=== PATIENT | male | born 1970 | race Caucasian/White ===

== ENCOUNTER 2019-09-08 14:53 | Outpatient (RCR) | payer MEDICARE ==
[2019-09-08] MEDS ORDERED: LIDOCAINE/PRILOCAINE 2.5-2.5% KIT ONE (15:25)
[2019-09-08] MEDS ORDERED: COLLAGENASE OINTMENT 30 GM TUBE ONE (15:25)
[2019-09-08] MEDS ORDERED: LIDOCAINE HCL 2% LOCAL 20 ML VIAL ONE (15:25)
[2019-09-08] MEDS ORDERED: SILVER SULFADIAZINE 50GM CREAM ONE (15:25)
== END 2019-09-14 ==
LOC: WCC 14:53
PROVIDERS: ATTEND Podiatrist
DX: E11.22 Type 2 diabetes mellitus with diabetic chronic kidney disease (principal); E11.621 Type 2 diabetes mellitus with foot ulcer; E11.628 Type 2 diabetes mellitus with other skin complications; L89.896 Pressure-induced deep tissue damage of other site; L97.522 Non-pressure chronic ulcer of other part of left foot with fat layer exposed; I70.203 Unspecified atherosclerosis of native arteries of extremities, bilateral legs; N18.5 Chronic kidney disease, stage 5; I10 Essential (primary) hypertension; H40.9 Unspecified glaucoma
CPT/HCPCS: 11042 ×2; 11730; 36415 ×2; 82948 ×2; 97597; 99203; 99213; J2001

== ENCOUNTER 2019-10-13 13:49 | Outpatient (RCR) | payer MEDICARE ==
[~2019-10-13 13:49] MED LIST: COLLAGENASE OINTMENT 30 GM TUBE ONE; SILVER SULFADIAZINE 50GM CREAM ONE
== END 2019-10-15 ==
LOC: WCC 13:49
PROVIDERS: ATTEND Podiatrist
DX: E11.621 Type 2 diabetes mellitus with foot ulcer (principal); E11.22 Type 2 diabetes mellitus with diabetic chronic kidney disease; E11.628 Type 2 diabetes mellitus with other skin complications; I96 Gangrene, not elsewhere classified; L89.896 Pressure-induced deep tissue damage of other site; L60.1 Onycholysis; L97.526 Non-pressure chronic ulcer of other part of left foot with bone involvement without evidence of necrosis; I70.203 Unspecified atherosclerosis of native arteries of extremities, bilateral legs; N18.5 Chronic kidney disease, stage 5; I10 Essential (primary) hypertension; G45.9 Transient cerebral ischemic attack, unspecified; H40.9 Unspecified glaucoma

== ENCOUNTER 2019-11-10 12:20 | Outpatient (RCR) | payer MEDICARE | END 2019-11-15 | LOC: WCC 12:20 | PROVIDERS: ATTEND Podiatrist | DX: E11.621 Type 2 diabetes mellitus with foot ulcer (principal); E11.22 Type 2 diabetes mellitus with diabetic chronic kidney disease; E11.628 Type 2 diabetes mellitus with other skin complications; I96 Gangrene, not elsewhere classified; L97.511 Non-pressure chronic ulcer of other part of right foot limited to breakdown of skin; L97.518 Non-pressure chronic ulcer of other part of right foot with other specified severity; L97.528 Non-pressure chronic ulcer of other part of left foot with other specified severity; S90.821A Blister (nonthermal), right foot, initial encounter; S90.822A Blister (nonthermal), left foot, initial encounter; G45.9 Transient cerebral ischemic attack, unspecified; L60.1 Onycholysis; N18.5 Chronic kidney disease, stage 5; I10 Essential (primary) hypertension; H40.9 Unspecified glaucoma; I70.203 Unspecified atherosclerosis of native arteries of extremities, bilateral legs ==

== ENCOUNTER → 2019-12-14 | Outpatient (CLI) | payer MEDICARE ==
--- NOTE | 2019-12-15 08:23 | Diagnostic Imaging Report ---
TECHNIQUE: Magnetic resonance imaging of the RIGHT foot was performed WITHOUT injected contrast. HISTORY: Right foot pain, diabetes, ulcer first and second toe COMPARISON: None available. DISCUSSION: Limited due to motion artifact and incomplete fat suppression distally. Bone marrow edema and T1 signal loss involving the phalanges of the second toe. Possible bone marrow edema of the distal phalanx of the hallux without T1 replacement. Remainder of the bone marrow signal is normal. No soft tissue abscess. IMPRESSION: Limited MRI due to motion and incomplete fat suppression. Osteomyelitis of the phalanges of the second toe. Possible osteomyelitis of the distal aspect distal phalanx first toe. Signed by: Dr. Jefry Tucker M.D. on 12/15/2019 8:20 AM
== END ==
LOC: MRI 14:41
PROVIDERS: ATTEND Podiatrist
DX: E11.621 Type 2 diabetes mellitus with foot ulcer (principal); L97.511 Non-pressure chronic ulcer of other part of right foot limited to breakdown of skin

== ENCOUNTER → 2019-12-15 | Outpatient (RCR) | payer MEDICARE ==
[~2019-12-15] MED LIST changes: +MINERAL OIL/PETROLAT/GLYCERI 6OZ BTL ONE; +MUPIROCIN 2% OINT 22 GM TUBE ONE
== END ==
LOC: EDSTATUS 11-24 14:54 → WCC 11-24 14:55
PROVIDERS: ATTEND Podiatrist
DX: E11.621 Type 2 diabetes mellitus with foot ulcer (principal); E11.628 Type 2 diabetes mellitus with other skin complications; E11.22 Type 2 diabetes mellitus with diabetic chronic kidney disease; I96 Gangrene, not elsewhere classified; L97.528 Non-pressure chronic ulcer of other part of left foot with other specified severity; L97.521 Non-pressure chronic ulcer of other part of left foot limited to breakdown of skin; L97.518 Non-pressure chronic ulcer of other part of right foot with other specified severity; L97.511 Non-pressure chronic ulcer of other part of right foot limited to breakdown of skin; S90.822A Blister (nonthermal), left foot, initial encounter; S90.821A Blister (nonthermal), right foot, initial encounter; I70.203 Unspecified atherosclerosis of native arteries of extremities, bilateral legs; N18.5 Chronic kidney disease, stage 5; I10 Essential (primary) hypertension; G45.9 Transient cerebral ischemic attack, unspecified; H40.9 Unspecified glaucoma
CPT/HCPCS: 10061; 87071; 87075; 87186; 87205

== ENCOUNTER 2020-01-12 14:32 | Outpatient (RCR) | payer MEDICARE ==
[~2020-01-12 14:32] MED LIST changes: +LIDOCAINE HCL 2% LOCAL 20 ML VIAL ONE; +LIDOCAINE/PRILOCAINE 2.5-2.5% KIT ONE; -MINERAL OIL/PETROLAT/GLYCERI 6OZ BTL ONE; -MUPIROCIN 2% OINT 22 GM TUBE ONE; +TRYPSIN/BALSAM PERU/CASTOR OIL ONE
== END 2020-01-15 ==
LOC: WCC 14:32
PROVIDERS: ATTEND Podiatrist
DX: E11.621 Type 2 diabetes mellitus with foot ulcer (principal); E11.22 Type 2 diabetes mellitus with diabetic chronic kidney disease; E11.628 Type 2 diabetes mellitus with other skin complications; I96 Gangrene, not elsewhere classified; M86.171 Other acute osteomyelitis, right ankle and foot; L97.516 Non-pressure chronic ulcer of other part of right foot with bone involvement without evidence of necrosis; L97.511 Non-pressure chronic ulcer of other part of right foot limited to breakdown of skin; L97.518 Non-pressure chronic ulcer of other part of right foot with other specified severity; L97.528 Non-pressure chronic ulcer of other part of left foot with other specified severity; N18.5 Chronic kidney disease, stage 5; I10 Essential (primary) hypertension; G45.9 Transient cerebral ischemic attack, unspecified; H40.9 Unspecified glaucoma; B96.89 Other specified bacterial agents as the cause of diseases classified elsewhere; I70.203 Unspecified atherosclerosis of native arteries of extremities, bilateral legs
CPT/HCPCS: 11042 ×4; 11043; 11044; 12020; 36415; 82948; 87071; 87186; 87205; 88307; 88311; 99213 ×4; J2001; 88304

== ENCOUNTER → 2020-01-27 | Outpatient (CLI) | payer MEDICARE ==
--- NOTE | 2020-01-27 16:11 | Diagnostic Imaging Report ---
TECHNIQUE: Magnetic resonance imaging of the LEFT foot was performed WITHOUT injected contrast. HISTORY: Second digit infection, assess for abscess COMPARISON: None available. DISCUSSION: Markedly limited evaluation secondary to motion artifacts. 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 Bone marrow edema within the second digit middle and proximal phalanges with questionable T1 hypointense signal, suspicious for osteomyelitis given apparent exposed bone at the middle phalanx. No additional suspicious bone marrow signal changes given exam limitations. Joints: No gross joint dislocation. No large joint effusion given exam limitations. Muscles/tendons: Edema within the visualized forefoot musculature, may represent reactive changes or diabetic myopathy. Visualized flexor and extensor tendons appear grossly intact given exam limitations. Soft Tissues: Soft tissue defect and exposed bone at the second digit amputation site. Associated diffuse soft tissue edema of the second digit. Focus of 1.8 cm curvilinear increased T2 signal tracking within the soft tissues along the plantar aspect of the second digit proximally to the level of the MTP joint. Additional diffuse edema along the dorsum of the forefoot. IMPRESSION: Markedly limited evaluation secondary to motion artifacts and lack of IV contrast. 1. Findings suspicious for osteomyelitis of the second toe proximal and middle phalanges given adjacent wound and possible exposed bone at second toe amputation site. 2. Focus of 1.8 cm curvilinear increased T2 signal tracking within the plantar soft tissues along proximal aspect of the second toe, may represent phlegmonous change however cannot exclude early abscess given exam limitations. 3. Diffuse subcutaneous edema along the dorsum of the forefoot. Signed by: Dr. Morris Schroeder M.D. on 01/27/2020 4:08 PM
== END ==
LOC: MRI 13:34
PROVIDERS: ATTEND Podiatrist
DX: T81.31XA Disruption of external operation (surgical) wound, not elsewhere classified, initial encounter (principal)

== ENCOUNTER 2020-02-09 14:49 | Outpatient (RCR) | payer MEDICARE ==
[~2020-02-09 14:49] MED LIST changes: +CADEXOMER IODINE 30 GM TUBE ONE; -COLLAGENASE OINTMENT 30 GM TUBE ONE; -LIDOCAINE HCL 2% LOCAL 20 ML VIAL ONE; +LIDOCAINE VISC 2% SOLN 15 ML UDC ONE; -SILVER SULFADIAZINE 50GM CREAM ONE
== END 2020-02-14 ==
LOC: WCC 14:49
PROVIDERS: ATTEND Podiatrist
DX: E11.621 Type 2 diabetes mellitus with foot ulcer (principal); E11.22 Type 2 diabetes mellitus with diabetic chronic kidney disease; E11.628 Type 2 diabetes mellitus with other skin complications; I96 Gangrene, not elsewhere classified; M86.171 Other acute osteomyelitis, right ankle and foot; L97.516 Non-pressure chronic ulcer of other part of right foot with bone involvement without evidence of necrosis; L97.518 Non-pressure chronic ulcer of other part of right foot with other specified severity; L97.511 Non-pressure chronic ulcer of other part of right foot limited to breakdown of skin; L97.528 Non-pressure chronic ulcer of other part of left foot with other specified severity; N18.5 Chronic kidney disease, stage 5; I70.203 Unspecified atherosclerosis of native arteries of extremities, bilateral legs; I10 Essential (primary) hypertension; G45.9 Transient cerebral ischemic attack, unspecified; B95.61 Methicillin susceptible Staphylococcus aureus infection as the cause of diseases classified elsewhere; B96.5 Pseudomonas (aeruginosa) (mallei) (pseudomallei) as the cause of diseases classified elsewhere; B96.89 Other specified bacterial agents as the cause of diseases classified elsewhere; H40.9 Unspecified glaucoma
CPT/HCPCS: 36415; 82948; 87071; 87075; 87186; 87205

== ENCOUNTER 2020-02-16 13:55 | Outpatient (RCR) | payer MEDICARE ==
[2020-02-22] MEDS ORDERED: LIDOCAINE VISC 2% SOLN 15 ML UDC ONE (12:54)
[2020-03-01] MEDS ORDERED: LIDOCAINE VISC 2% SOLN 15 ML UDC ONE (13:42)
[2020-03-08] MEDS ORDERED: LIDOCAINE VISC 2% SOLN 15 ML UDC ONE (13:28)
== END 2020-03-16 ==
LOC: WCC 13:55
PROVIDERS: ATTEND Podiatrist
DX: T81.31XA Disruption of external operation (surgical) wound, not elsewhere classified, initial encounter (principal); E11.22 Type 2 diabetes mellitus with diabetic chronic kidney disease; E11.628 Type 2 diabetes mellitus with other skin complications; E11.621 Type 2 diabetes mellitus with foot ulcer; I96 Gangrene, not elsewhere classified; M86.171 Other acute osteomyelitis, right ankle and foot; L97.516 Non-pressure chronic ulcer of other part of right foot with bone involvement without evidence of necrosis; L97.511 Non-pressure chronic ulcer of other part of right foot limited to breakdown of skin; I70.203 Unspecified atherosclerosis of native arteries of extremities, bilateral legs; L97.518 Non-pressure chronic ulcer of other part of right foot with other specified severity; N18.5 Chronic kidney disease, stage 5; I10 Essential (primary) hypertension; B95.61 Methicillin susceptible Staphylococcus aureus infection as the cause of diseases classified elsewhere; B96.5 Pseudomonas (aeruginosa) (mallei) (pseudomallei) as the cause of diseases classified elsewhere; B96.89 Other specified bacterial agents as the cause of diseases classified elsewhere; G45.9 Transient cerebral ischemic attack, unspecified; H40.9 Unspecified glaucoma

== ENCOUNTER 2020-03-15 14:56 | Outpatient (RCR) | payer MEDICARE | END 2020-03-16 | LOC: WCC 14:56 | PROVIDERS: ATTEND Podiatrist | DX: T81.31XA Disruption of external operation (surgical) wound, not elsewhere classified, initial encounter (principal); E11.628 Type 2 diabetes mellitus with other skin complications; E11.22 Type 2 diabetes mellitus with diabetic chronic kidney disease; E11.621 Type 2 diabetes mellitus with foot ulcer; I96 Gangrene, not elsewhere classified; M86.171 Other acute osteomyelitis, right ankle and foot; L97.516 Non-pressure chronic ulcer of other part of right foot with bone involvement without evidence of necrosis; L97.518 Non-pressure chronic ulcer of other part of right foot with other specified severity; L97.511 Non-pressure chronic ulcer of other part of right foot limited to breakdown of skin; I70.203 Unspecified atherosclerosis of native arteries of extremities, bilateral legs; N18.5 Chronic kidney disease, stage 5; I10 Essential (primary) hypertension; B95.61 Methicillin susceptible Staphylococcus aureus infection as the cause of diseases classified elsewhere; B96.5 Pseudomonas (aeruginosa) (mallei) (pseudomallei) as the cause of diseases classified elsewhere; B96.89 Other specified bacterial agents as the cause of diseases classified elsewhere; G45.9 Transient cerebral ischemic attack, unspecified; H40.9 Unspecified glaucoma | CPT/HCPCS: 87071; 87075; 87186; 87205 ==

== ENCOUNTER 2020-04-12 13:33 | Outpatient (RCR) | payer MEDICARE ==
[~2020-04-12 13:33] MED LIST changes: -CADEXOMER IODINE 30 GM TUBE ONE; +COLLAGENASE OINTMENT 30 GM TUBE ONE; +MINERAL OIL/PETROLAT/GLYCERI 2OZ CRM ONE; +SILVER SULFADIAZINE 50GM CREAM ONE; -TRYPSIN/BALSAM PERU/CASTOR OIL ONE
== END 2020-04-16 ==
LOC: WCC 13:33
PROVIDERS: ATTEND Podiatrist
DX: T81.31XA Disruption of external operation (surgical) wound, not elsewhere classified, initial encounter (principal); E11.621 Type 2 diabetes mellitus with foot ulcer; E11.22 Type 2 diabetes mellitus with diabetic chronic kidney disease; E11.628 Type 2 diabetes mellitus with other skin complications; I96 Gangrene, not elsewhere classified; M86.171 Other acute osteomyelitis, right ankle and foot; L97.516 Non-pressure chronic ulcer of other part of right foot with bone involvement without evidence of necrosis; L97.518 Non-pressure chronic ulcer of other part of right foot with other specified severity; I70.203 Unspecified atherosclerosis of native arteries of extremities, bilateral legs; B95.61 Methicillin susceptible Staphylococcus aureus infection as the cause of diseases classified elsewhere; B96.5 Pseudomonas (aeruginosa) (mallei) (pseudomallei) as the cause of diseases classified elsewhere; B96.89 Other specified bacterial agents as the cause of diseases classified elsewhere; N18.5 Chronic kidney disease, stage 5; I10 Essential (primary) hypertension; G45.9 Transient cerebral ischemic attack, unspecified; H40.9 Unspecified glaucoma

== ENCOUNTER 2020-07-12 14:38 | Outpatient (RCR) | payer MEDICARE ==
[~2020-07-12 14:38] MED LIST changes: +LIDOCAINE HCL 2% LOCAL 20 ML VIAL ONE; -LIDOCAINE/PRILOCAINE 2.5-2.5% KIT ONE; -MINERAL OIL/PETROLAT/GLYCERI 2OZ CRM ONE; -SILVER SULFADIAZINE 50GM CREAM ONE; +TRYPSIN/BALSAM PERU/CASTOR OIL ONE
== END 2020-07-14 ==
LOC: WCC 14:38
PROVIDERS: ATTEND Podiatrist
DX: T81.31XA Disruption of external operation (surgical) wound, not elsewhere classified, initial encounter (principal); T87.89 Other complications of amputation stump; Y84.8 Other medical procedures as the cause of abnormal reaction of the patient, or of later complication, without mention of misadventure at the time of the procedure; E11.22 Type 2 diabetes mellitus with diabetic chronic kidney disease; E11.622 Type 2 diabetes mellitus with other skin ulcer; E11.621 Type 2 diabetes mellitus with foot ulcer; E11.628 Type 2 diabetes mellitus with other skin complications; M86.171 Other acute osteomyelitis, right ankle and foot; I96 Gangrene, not elsewhere classified; L97.516 Non-pressure chronic ulcer of other part of right foot with bone involvement without evidence of necrosis; L97.518 Non-pressure chronic ulcer of other part of right foot with other specified severity; L97.812 Non-pressure chronic ulcer of other part of right lower leg with fat layer exposed; N18.5 Chronic kidney disease, stage 5; I10 Essential (primary) hypertension; G45.9 Transient cerebral ischemic attack, unspecified; H40.9 Unspecified glaucoma; B95.61 Methicillin susceptible Staphylococcus aureus infection as the cause of diseases classified elsewhere; B96.5 Pseudomonas (aeruginosa) (mallei) (pseudomallei) as the cause of diseases classified elsewhere; B96.89 Other specified bacterial agents as the cause of diseases classified elsewhere; I70.203 Unspecified atherosclerosis of native arteries of extremities, bilateral legs
CPT/HCPCS: 11042 ×2; 11045; 73630; 87071; 87075; 87186; 87205; 99213 ×2; J2001

== ENCOUNTER 2020-08-11 13:01 | Outpatient (RCR) | payer MEDICARE ==
[2020-07-24 15:00] LABS: BASOPHILS % 0.5 % (0.0-1.0); EOSINOPHILS # (AUTO) 0.5 (0.0-0.4); EOSINOPHILS % 5.7 % (0.0-6.0); HEMATOCRIT 35.6 % (38.2-49.6); HEMOGLOBIN 10.8 g/dL (14.0-18.0); LYMPHOCYTES # (AUTO) 0.9 (1.0-3.2); LYMPHOCYTES % 10.8 % (18.0-39.1); MEAN CORPUSCULAR HEMOGLOBIN 27.8 pg (28-32); MEAN CORPUSCULAR HGB CONC 30.3 g/dL (31-35); MEAN CORPUSCULAR VOLUME 91.8 fL (81-99); MONOCYTES # (AUTO) 0.8 (0.2-0.8); MONOCYTES % 9.3 % (4.4-11.3); NEUTROPHILS # (AUTO) 6.2 (2.1-6.9); NEUTROPHILS % 73.3 % (38.7-80.0); PLATELET COUNT 198 x10e3/uL (140-360); RED BLOOD COUNT 3.88 x10e6/uL (4.3-5.7); RED CELL DISTRIBUTION WIDTH 17.3 % (11.7-14.4)
[~2020-08-11 13:01] MED LIST changes: +LIDOCAINE HCL 1% LOCAL INJ 20 ML VIAL ONE; -LIDOCAINE HCL 2% LOCAL 20 ML VIAL ONE; -LIDOCAINE VISC 2% SOLN 15 ML UDC ONE; +LIDOCAINE/PRILOCAINE 2.5-2.5% KIT ONE
[2020-08-11] MEDS ORDERED: MINERAL OIL/PETROLAT/GLYCERI 6OZ BTL ONE (13:50)
[2020-08-11] MEDS ORDERED: SILVER SULFADIAZINE 50GM CREAM ONE (13:50)
== END 2020-08-14 ==
LOC: WCC 13:01
PROVIDERS: ATTEND Internal Medicine Infectious Disease
DX: T87.89 Other complications of amputation stump (principal); Y84.8 Other medical procedures as the cause of abnormal reaction of the patient, or of later complication, without mention of misadventure at the time of the procedure; E11.22 Type 2 diabetes mellitus with diabetic chronic kidney disease; E11.621 Type 2 diabetes mellitus with foot ulcer; E11.622 Type 2 diabetes mellitus with other skin ulcer; E11.628 Type 2 diabetes mellitus with other skin complications; M86.171 Other acute osteomyelitis, right ankle and foot; L97.516 Non-pressure chronic ulcer of other part of right foot with bone involvement without evidence of necrosis; L97.518 Non-pressure chronic ulcer of other part of right foot with other specified severity; L97.812 Non-pressure chronic ulcer of other part of right lower leg with fat layer exposed; I70.203 Unspecified atherosclerosis of native arteries of extremities, bilateral legs; N18.5 Chronic kidney disease, stage 5; I10 Essential (primary) hypertension; G45.9 Transient cerebral ischemic attack, unspecified; B96.5 Pseudomonas (aeruginosa) (mallei) (pseudomallei) as the cause of diseases classified elsewhere; H40.9 Unspecified glaucoma
CPT/HCPCS: 11042 ×4; 36415; 85025; 85651; 86140; 87071; 87075; 87186; 87205; 88305; 88311; 97597 ×2; 97602; 99203; 99211; 99212; 99213 ×5; J2001; 88304

== ENCOUNTER 2020-09-06 15:43 | Outpatient (RCR) | payer MEDICARE ==
[~2020-09-06 15:43] MED LIST changes: -COLLAGENASE OINTMENT 30 GM TUBE ONE; -LIDOCAINE HCL 1% LOCAL INJ 20 ML VIAL ONE; -TRYPSIN/BALSAM PERU/CASTOR OIL ONE
== END 2020-09-13 ==
LOC: WCC 15:43
PROVIDERS: ATTEND Podiatrist
DX: T87.89 Other complications of amputation stump (principal); Y84.8 Other medical procedures as the cause of abnormal reaction of the patient, or of later complication, without mention of misadventure at the time of the procedure; E11.22 Type 2 diabetes mellitus with diabetic chronic kidney disease; E11.628 Type 2 diabetes mellitus with other skin complications; M86.671 Other chronic osteomyelitis, right ankle and foot; M86.171 Other acute osteomyelitis, right ankle and foot; S91.309A Unspecified open wound, unspecified foot, initial encounter; L03.031 Cellulitis of right toe; N18.5 Chronic kidney disease, stage 5; I10 Essential (primary) hypertension; G45.9 Transient cerebral ischemic attack, unspecified; H40.9 Unspecified glaucoma; I70.203 Unspecified atherosclerosis of native arteries of extremities, bilateral legs; W45.8XXA Other foreign body or object entering through skin, initial encounter
CPT/HCPCS: 88304; 88305

== ENCOUNTER 2020-10-04 11:07 | Outpatient (RCR) | payer MEDICARE ==
[2020-10-04] MEDS ORDERED: LIDOCAINE/PRILOCAINE 2.5-2.5% KIT ONE (18:00)
[2020-10-04] MEDS ORDERED: TRIAMCINOLONE ACET 0.1% CREAM 15 GM TUBE ONE (18:00)
== END 2020-10-14 ==
LOC: WCC 11:07
PROVIDERS: ATTEND Family Medicine
DX: T87.89 Other complications of amputation stump (principal); Y84.8 Other medical procedures as the cause of abnormal reaction of the patient, or of later complication, without mention of misadventure at the time of the procedure; E11.22 Type 2 diabetes mellitus with diabetic chronic kidney disease; E11.628 Type 2 diabetes mellitus with other skin complications; I70.203 Unspecified atherosclerosis of native arteries of extremities, bilateral legs; N18.5 Chronic kidney disease, stage 5; I10 Essential (primary) hypertension; G45.9 Transient cerebral ischemic attack, unspecified; H40.9 Unspecified glaucoma; W45.8XXA Other foreign body or object entering through skin, initial encounter

== ENCOUNTER 2020-11-08 13:43 | Outpatient (RCR) | payer MEDICARE | END 2020-11-14 | LOC: WCC 13:43 | PROVIDERS: ATTEND Family Medicine | DX: T87.89 Other complications of amputation stump (principal); Y84.8 Other medical procedures as the cause of abnormal reaction of the patient, or of later complication, without mention of misadventure at the time of the procedure; E11.621 Type 2 diabetes mellitus with foot ulcer; E11.22 Type 2 diabetes mellitus with diabetic chronic kidney disease; E11.628 Type 2 diabetes mellitus with other skin complications; L97.519 Non-pressure chronic ulcer of other part of right foot with unspecified severity; L03.031 Cellulitis of right toe; R23.4 Changes in skin texture; N18.5 Chronic kidney disease, stage 5; I10 Essential (primary) hypertension; G45.9 Transient cerebral ischemic attack, unspecified; H40.9 Unspecified glaucoma; I70.203 Unspecified atherosclerosis of native arteries of extremities, bilateral legs; R26.81 Unsteadiness on feet; W45.8XXA Other foreign body or object entering through skin, initial encounter | CPT/HCPCS: 87071; 87075; 87102; 87205; 87206 ==

== ENCOUNTER 2020-12-13 14:41 | Outpatient (RCR) | payer MEDICARE | END 2020-12-14 | LOC: WCC 14:41 | PROVIDERS: ATTEND Podiatrist | DX: T87.89 Other complications of amputation stump (principal); Y84.8 Other medical procedures as the cause of abnormal reaction of the patient, or of later complication, without mention of misadventure at the time of the procedure; E11.621 Type 2 diabetes mellitus with foot ulcer; E11.22 Type 2 diabetes mellitus with diabetic chronic kidney disease; E11.628 Type 2 diabetes mellitus with other skin complications; L97.519 Non-pressure chronic ulcer of other part of right foot with unspecified severity; L03.031 Cellulitis of right toe; I70.203 Unspecified atherosclerosis of native arteries of extremities, bilateral legs; N18.5 Chronic kidney disease, stage 5; I10 Essential (primary) hypertension; G45.9 Transient cerebral ischemic attack, unspecified; H40.9 Unspecified glaucoma; R26.81 Unsteadiness on feet; W45.8XXA Other foreign body or object entering through skin, initial encounter ==

== ENCOUNTER → 2020-12-27 | Outpatient (CLI) | payer MEDICARE | LOC: MRI 14:42 | PROVIDERS: ATTEND Podiatrist | DX: E11.621 Type 2 diabetes mellitus with foot ulcer (principal); L97.519 Non-pressure chronic ulcer of other part of right foot with unspecified severity ==

== ENCOUNTER 2021-01-12 10:53 | Outpatient (RCR) | payer MEDICARE | END 2021-01-14 | LOC: WCC 10:53 | PROVIDERS: ATTEND Internal Medicine Infectious Disease | DX: E11.621 Type 2 diabetes mellitus with foot ulcer (principal); E11.22 Type 2 diabetes mellitus with diabetic chronic kidney disease; E11.628 Type 2 diabetes mellitus with other skin complications; Y84.8 Other medical procedures as the cause of abnormal reaction of the patient, or of later complication, without mention of misadventure at the time of the procedure; L97.519 Non-pressure chronic ulcer of other part of right foot with unspecified severity; I70.203 Unspecified atherosclerosis of native arteries of extremities, bilateral legs; N18.5 Chronic kidney disease, stage 5; I10 Essential (primary) hypertension; G45.9 Transient cerebral ischemic attack, unspecified; H40.9 Unspecified glaucoma; R26.81 Unsteadiness on feet; W45.8XXA Other foreign body or object entering through skin, initial encounter ==

== ENCOUNTER 2022-05-13 09:46 | Outpatient (RCR) | payer MEDICARE ==
[2022-05-13] MEDS ORDERED: GENTAMICIN SULFATE 15 GM CR TP ONE (13:36)
[2022-05-13] MEDS ORDERED: COLLAGENASE OINTMENT 30 GM TUBE ONE (13:36)
[2022-05-13] MEDS ORDERED: LIDOCAINE VISC 2% SOLN 15 ML UDC ONE (13:36)
== END 2022-05-14 ==
LOC: WCC 09:46
PROVIDERS: ATTEND Internal Medicine Infectious Disease
DX: E11.628 Type 2 diabetes mellitus with other skin complications (principal); E11.22 Type 2 diabetes mellitus with diabetic chronic kidney disease; E11.621 Type 2 diabetes mellitus with foot ulcer; Y84.8 Other medical procedures as the cause of abnormal reaction of the patient, or of later complication, without mention of misadventure at the time of the procedure; I70.203 Unspecified atherosclerosis of native arteries of extremities, bilateral legs; L97.521 Non-pressure chronic ulcer of other part of left foot limited to breakdown of skin; G45.9 Transient cerebral ischemic attack, unspecified; N18.5 Chronic kidney disease, stage 5; I10 Essential (primary) hypertension; H40.9 Unspecified glaucoma; W45.8XXS Other foreign body or object entering through skin, sequela; R26.81 Unsteadiness on feet

== ENCOUNTER 2022-06-24 08:00 | Outpatient (RCR) | payer MEDICARE ==
[~2022-06-24 08:00] MED LIST changes: +COLLAGENASE OINTMENT 30 GM TUBE ONE; -LIDOCAINE/PRILOCAINE 2.5-2.5% KIT ONE
== END 2022-07-14 ==
LOC: WCC 08:00
PROVIDERS: ATTEND Internal Medicine Infectious Disease
DX: E11.621 Type 2 diabetes mellitus with foot ulcer (principal); M86.172 Other acute osteomyelitis, left ankle and foot

== ENCOUNTER 2022-07-15 09:42 | Outpatient (RCR) | payer MEDICARE ==
[2022-07-15] MEDS ORDERED: COLLAGENASE OINTMENT 30 GM TUBE ONE (12:47)
== END 2022-08-14 ==
LOC: WCC 09:42
PROVIDERS: ATTEND Internal Medicine Infectious Disease
DX: E11.621 Type 2 diabetes mellitus with foot ulcer (principal); M86.172 Other acute osteomyelitis, left ankle and foot